=== PATIENT | female | born 1975 | race Caucasian/White ===

== ENCOUNTER 2019-01-08 08:44 | Day surgery (SDC) | payer OTHER ==
[2019-01-08] VITALS (8 sets, daily range): BP systolic 103–122; BP diastolic 56–70; PULSE 62–83; RESP 12–22; Ht 167.6 cm; Wt 89.1 kg
[~2019-01-08] VITALS: Ht 167.6 cm; Wt 89.1 kg
[~2019-01-08 08:44] MED LIST: CEFAZOLIN 2 GM/50 ML (PMX) 50 ML IVPB SCH; SOD CHLORIDE 0.9% 1,000 ML IV SCH
[2019-01-08] MEDS ORDERED: CHOL100062 PO (09:40)
[2019-01-08] MEDS ORDERED: IUD (09:41)
--- NOTE | 2019-01-08 11:10 | PREAC ---
Date/Time of Note Date/Time of Note DATE: 01/08/19 TIME: 11:08 Anesthesia Eval and Record Evaluation Time Pre-Procedure Interview DATE: 01/08/19 TIME: 11:08 Age 43 Sex female NPO: 8 hrs Preoperative diagnosis Right shoulder mass Planned procedure Excision of mass Past Medical History Past Medical History: Includes (Migraine headache) GI: Obesity Surgery & Anesthesia Issues No known issue Meds Anticoagulation: No Beta Bud within 24 hr: No Reason Beta Bud not given: Pt. not on B-Bud Reported Medications [Iud] No Conflict Check PT HAS IUD IN 01/08/19 Cholecalciferol* (Vitamin D3*) 1,000 Unit Tablet, 1000 UNIT PO DAILY, TAB 01/08/19 Current Medications Sodium Chloride 1,000 ml @ 75 mls/hr [id number] IV ; Start 01/08/19 at 06:00; Stop 01/08/19 at 16:00 Cefazolin Sodium/ Dextrose 50 ml @ 100 mls/hr PREOP IVPB ; Start 01/08/19 at 06:00; Stop 01/08/19 at 17:00 Meds reviewed: Yes Allergies Coded Allergies: aspirin (Verified Allergy, Unknown, 01/08/19) Allergies Reviewed: Yes Labs/Studies Labs Reviewed: Reviewed by anesthesiologist test: Negative Pre-procedure Exam Last vitals Vital Signs Date Temp Pulse Resp B/P (MAP) Pulse Ox O2 O2 Flow FiO2 Time Delivery Rate 01/08/19 97.6 69 16 122/70 100 Room Air 09:50 (87) Airway: Adequate mouth opening Mallampati: Mallampati II Teeth: Normal Lung: Normal Heart: Normal ASA Physical Status ASA physical status: 2 Emergency: None Planned Anesthetic General/MAC: LMA, MAC Planned Pain Management Parenteral pain med Pre-operative Attestations Prior to commencing anesthesia and surgery, the patient was re-evaluated, there was verification of: *The patient's identity *The results of appropriate recent lab work and preoperative vital signs *The above evaluation not changing prior to induction *Anesthetic plan, risk benefits, alternative and complications discussed with patient/family; questions answered; patient/family understands, accepts and wishes to proceed. PEPE NAVARRO MD Jan 08, 2019 11:10
[2019-01-08] MEDS ORDERED: LIDOCAINE 2% (MDV) 20 ML INJ ONE (11:15)
[2019-01-08] MEDS ORDERED: BUPIVACAINE 0.5%/EPI (SDV) 30 ML INJ ONE (11:15)
[2019-01-08] MEDS ORDERED: PROPOFOL 20 ML ONE (11:23)
[2019-01-08] MEDS ORDERED: MIDAZOLAM 1 MG/ML 2 ML INJ ONE (11:23)
[2019-01-08] MEDS ORDERED: CEFAZOLIN 1 GM INJ ONE (11:24)
[2019-01-08] MEDS ORDERED: FENTAnyl 50 MCG/ML VIAL ONE (11:24)
--- NOTE | 2019-01-08 12:04 | OPR ---
Date/Time of Note Date/Time of Note DATE: 01/08/19 TIME: 12:01 Operative Report Preoperative Diagnosis Lipoma left back Postoperative Diagnosis Same Operation/Procedure Performed Excision of subcutaneous benign tumor subfascial, 5 cm Surgeon see signature line Diamond Grader None Anesthesia Type: MAC Estimated Blood Loss: minimal Transfusion none Specimen Lipoma Grafts/Implants none Complications none Pt Condition Post Procedure: stable Disposition: PACU Indications Patient presented with a lipoma under her left scapula that was causing sign ificant pain and discomfort and therefore required excision. Procedure Description Patient was laid prone on the operating room table and her left back was prepped and draped in a sterile manner. Just inferior to her left scapula a large lipoma that was under tension could be palpated. A linear transverse incision was made 5 cm wide overlying the area of the subcutaneous lesion. This was deepened with the scalpel until the subcutaneous tissue was encountered. The subcutaneous tissue was divided until the capsule of the lipoma was encountered. The lipoma was noted to be abutting the fascia of the infraspinatus muscle. The lipoma was dissected free of surrounding structures including the fascia and the muscle fibers to which it was adhered and thereafter passed off the field with its capsule intact. It measured about 5 cm. The wound was then irrigated with saline and closed with interrupted mattress sutures using 3-0 nylon and then was further reinforced with a running subcuticular 4-0 Monocryl suture with the knot buried. Wet and dry dressings were applied followed by Dermabond solution. All instrument sponge needle are correct at the end of the procedure and there were no comp occasions. YAZ EASTMAN Jan 08, 2019 12:04
[2019-01-08] MEDS ORDERED: DIPHENHYDRAMINE 50 MG INJ IV PRN (12:30)
[2019-01-08] MEDS ORDERED: FENTAnyl 50 MCG/ML VIAL IV PRN ×3 (12:30)
[2019-01-08] MEDS ORDERED: OXYCODONE/ACETAMINOPHEN (5/325) TAB PO PRN ×2 (12:30)
[2019-01-08] MEDS ORDERED: MEPERIDINE 25 MG INJ IV PRN (12:30)
[2019-01-08] MEDS ORDERED: ONDANSETRON 4 MG INJ IV PRN (12:30)
[2019-01-08] MEDS ORDERED: METOCLOPRAMIDE 10 MG INJ IV PRN (12:30)
[2019-01-08] MEDS ORDERED: MIDAZOLAM 1 MG/ML 2 ML INJ IV PRN (12:30)
--- NOTE | 2019-01-08 12:35 | PAC ---
Date/Time of Note Date/Time of Note DATE: 01/08/19 TIME: 12:35 Post-Anesthesia Notes Post-Anesthesia Note Last documented vital signs Vital Signs Date Temp Pulse Resp B/P (MAP) Pulse Ox O2 O2 Flow FiO2 Time Delivery Rate 01/08/19 98.3 83 22 107/63 100 Room Air 12:02 (78) Activity: WNL Respiratory function: WNL Cardiovascular function: WNL Mental status: Baseline Pain reasonably controlled: Yes Hydration appropriate: Yes Nausea/Vomiting absent: Yes PEPE NAVARRO MD Jan 08, 2019 12:35
== END 2019-01-08 14:00 | disposition home or self-care (01) ==
LOC: SDS 08:44
PROVIDERS: ATTEND Surgery Surgical Critical Care
DX: D17.1 Benign lipomatous neoplasm of skin and subcutaneous tissue of trunk (principal)
CPT/HCPCS: 21933; 84703; 88304; J0690; J1200; J2250; J3010